=== PATIENT | female | born 1940 | race Caucasian/White ===

== ENCOUNTER → 2022-10-22 | Outpatient (REF) ==
[2022-10-22 18:34] LABS: APPEARANCE, URINE CLEAR (CLEAR); BACTERIA, URINE AUTO NEGATIVE (NEGATIVE); BILIRUBIN, URINE AUTO NEGATIVE (NEGATIVE); BLOOD, URINE BLOOD NEGATIVE (NEGATIVE); COLOR, URINE YELLOW (YELLOW); GLUCOSE, URINE (UA) AUTO NEGATIVE (NEGATIVE); KETONE, URINE AUTO NEGATIVE (NEGATIVE); LEUKOCYTE ESTERASE, URINE AUTO NEGATIVE (NEGATIVE); NITRITE, URINE AUTO NEGATIVE (NEGATIVE); PROTEIN, URINE AUTO NEGATIVE (NEGATIVE); RBC, URINE AUTO 0 /HPF (0-3); SPECIFIC GRAVITY URINE AUTO 1.004 (1.002-1.035); SQUAMOUS EPITHELIAL CELL UR AU 1 /HPF (0-6); UROBILINOGEN, URINE AUTO 0.2 mg/dL (0.0-2.0); WBC, URINE AUTO 0 /HPF (0-3)
== END ==
PROVIDERS: ATTEND Internal Medicine
DX: R44.3 Hallucinations, unspecified (principal)

== ENCOUNTER 2022-10-30 13:32 | Observation (INO) | payer MEDICARE, MEDICAID ==
[~2022-10-30] VITALS: Ht 157.5 cm; Wt 71.7 kg
[2022-10-30] MEDS ORDERED: LEXA5TAB13 PO (13:58)
[2022-10-30] MEDS ORDERED: LEVO50TA5 PO (13:58)
[2022-10-30 16:21] LABS: BASO % 0.6 % (0.0-1.0); EOS % 0.6 % (0.0-3.0); HEMATOCRIT 45.4 % (36.0-47.0); HEMOGLOBIN 14.2 g/dl (12.0-15.5); LYMPH # 0.9 10^3/uL (1.5-5.0); LYMPH % 12.6 % (24.0-44.0); MEAN CORPUSCULAR HEMOGLOBIN 26.8 pg (27.0-33.0); MEAN CORPUSCULAR HGB CONC 31.3 g/dl (32.0-36.5); MEAN CORPUSCULAR VOLUME 85.8 fl (80.0-96.0); MONO # 0.5 10^3/uL (0.0-0.8); MONO % 7.3 % (2.0-8.0); NEUTROPHILS # 5.6 10^3/uL (1.5-8.5); NEUTROPHILS % 78.6 % (36.0-66.0); PLATELET COUNT, AUTOMATED 270 10^3/uL (150-450); RED BLOOD COUNT 5.29 10^6/uL (4.00-5.40); WHITE BLOOD COUNT 7.1 10^3/uL (4.0-10.0)
[2022-10-30 16:44] LABS: ALBUMIN 2.9 G/DL (3.2-5.2); ALKALINE PHOSPHATASE 100 U/L (46-116); ALT/SGPT < 9 U/L (7.0-40); AST/SGOT 16 U/L (<34); BILIRUBIN,DIRECT 0.2 MG/DL (<0.4); BILIRUBIN,TOTAL 0.5 MG/DL (0.3-1.2); BLOOD UREA NITROGEN 7 MG/DL (9-23); CALCIUM LEVEL 8.9 MG/DL (8.3-10.6); CARBON DIOXIDE LEVEL 29 MMOL/L (20-31); CHLORIDE LEVEL 102 MMOL/L (98-107); CREATININE FOR GFR 0.56 MG/DL (0.55-1.30); GLOMERULAR FILTRATION RATE > 60.0 (>32); GLUCOSE, FASTING 99 MG/DL (74-106); SODIUM LEVEL 139 MMOL/L (136-145); TOTAL PROTEIN 5.9 G/DL (5.7-8.2)
[2022-10-30 16:46] LABS: THYROID STIMULATING HORMONE 2.569 uIU/ML (0.55-4.78)
[2022-10-30] MEDS ORDERED: ISOVUE-370 76% 100ML VIAL As Ordered ONE (16:58)
[2022-10-30] MEDS ORDERED: NS 1,000 ML IV SCH (17:15)
[2022-10-30] MEDS ORDERED: MED REC IN PROGRESS XX SCH (17:30)
[2022-10-30] MEDS ORDERED: ACETAMINOPHEN 650MG SUPP PR PRN (18:00)
[2022-10-30] MEDS ORDERED: LABETALOL 100MG/20ML VIAL IV STA (18:19)
[2022-10-30] MEDS: NS 1,000 ML IV SCH (18:52)
[2022-10-30] MEDS: hydrALAZINE 20MG/ML 1ML VIAL IV PRN (18:53)
[2022-10-30] MEDS ORDERED: HOME MED LIST COMPLETE! XX SCH (18:55)
[2022-10-30] MEDS ORDERED: hydrALAZINE 20MG/ML 1ML VIAL IV STA (20:02)
[2022-10-30 21:10] VITALS: BP 188/70; TEMP 97.6; O2SAT 93
[2022-10-30 22:00] VITALS: O2SAT 92
[2022-10-30 22:34] VITALS: BP 158/66
[2022-10-30 23:00] VITALS: O2SAT 93
[2022-10-31] VITALS (26 sets, daily range): BP systolic 152–184; BP diastolic 65–86; TEMP 97.1–98.2; O2SAT 92–97
[2022-10-31] MEDS ORDERED: ALBUTEROL SULFATE 2.5MG/0.5ML INH NEB SOLN NEB PRN (03:10)
[2022-10-31] MEDS: IPRATROPIUM 0.5MG/ALBUTEROL 2.5MG INH SOL UD 3ML (DUONEB) NEB SCH ×3 (07:19→19:44)
[2022-10-31] MEDS: guaiFENesin 200 MG TAB PO SCH ×2 (07:27→21:00)
[2022-10-31] MEDS: NS 1,000 ML IV SCH (10:20)
[2022-10-31] MEDS: hydrALAZINE 20MG/ML 1ML VIAL IV PRN (16:30)
[2022-11-01 00:01] VITALS: BP 158/67; TEMP 98.2; O2SAT 94
[2022-11-01] MEDS: IPRATROPIUM 0.5MG/ALBUTEROL 2.5MG INH SOL UD 3ML (DUONEB) NEB SCH (02:23)
[2022-11-01] MEDS ORDERED: MAGNESIUM SULFATE 1GM/100ML D5W BAG (10MG/ML) As Ordered ONE ×2 (03:23→03:24)
[2022-11-01] MEDS ORDERED: AMIODARONE 150MG/3ML VIAL ONE (03:42)
== END 2022-11-01 03:43 | disposition expired ==
LOC: EDBD 13:32 → M ED 13:32 → M ED INP 13:33 → EDBD 13:33 → UNDOADMOB 13:33 → M PCU 21:05 → M ED INP 21:05 → UNDODISOB 11-01 03:43
PROVIDERS: ADMIT Family Medicine; ATTEND Family Medicine
DX: R13.10 Dysphagia, unspecified (principal); R06.02 Shortness of breath; R09.89 Other specified symptoms and signs involving the circulatory and respiratory systems; I16.9 Hypertensive crisis, unspecified; R91.8 Other nonspecific abnormal finding of lung field; Z85.01 Personal history of malignant neoplasm of esophagus; Z92.3 Personal history of irradiation; E03.9 Hypothyroidism, unspecified; F41.9 Anxiety disorder, unspecified; F32.A Depression, unspecified; F03.90 Unspecified dementia, unspecified severity, without behavioral disturbance, psychotic disturbance, mood disturbance, and anxiety; Z79.899 Other long term (current) drug therapy; Z79.890 Hormone replacement therapy
CPT/HCPCS: 31500; 71046; 71260; 80048; 80076; 84443; 85025; 87635; 92610; 93005; 94640; 96361; 96374; 96375; 96376; 99285; G0378; J0282; J0360; J1920; Q9967